=== PATIENT | male | born 1985 | race Caucasian/White ===

== ENCOUNTER 2016-11-24 06:13 | Emergency (ER) | payer OTHER ==
[~2016-11-24] VITALS: Ht 177.8 cm; Wt 83.9 kg
[~2016-11-24 06:13] MED LIST: ALLEGRA D 12 HO1 TER PO; ANAPROX DS550 MG PO; ANTIVERT/2525 M1 PO; BENTYL10 MG PO; CIPRO500 MG PO; CIPROFLOXACIN500 MG PO; CLARITIN-D 10 M1 T21 PO; CLARITIN10 MG PO; CLEOCIN HCL300 MG PO; CYCLOBENZAPRINE10 MG PO; FIORICET 325 MG1 TAB PO; FLEXERIL5 MG PO; FLONASE 0.05% 121 EA NAS; HYDROCODONE BIT1 T11 PO; IBU800 M1 PO; LEVOFLOXACIN500 MG PO; LOMOTIL 0.025 M1 TA1 PO; MIRALAX17 GM/PACK PO; MOTRIN800 MG PO; Motrin,Rufen800 MG PO; NAPROSYN500 MG PO; NKHM PO; PHENERGAN W/DM120 ML PO; PHENERGAN25 M1 PO; PHENERGAN25 M3 PO; PREDNICOT10 MG PO; PROAIR HFA0.09 MG/AC INH; PROTONIX40 MG PO; PYRIDIUM200 MG PO; ROBITUSSIN AC 110 ML PO; VALACYCLOVIR H500 MG PO; VIBRAMYCIN100 MG PO; ZITHROMAX Z PA250 MG PO; ZITHROMAX250 MG PO; ZOFRAN ODT4 MG SL; ZOFRAN4 MG PO; ZYRTEC10 M3 PO; ZYRTEC10 MG PO; Zofran4 MG PO
[2016-11-24] MEDS ORDERED: HYDROCODONE BIT1 T11 PO (06:37)
[2016-11-24] MEDS ORDERED: PREDNISONE10 MG PO (06:37)
[2016-11-24] MEDS ORDERED: Orphenadrine C100 MG PO (06:37)
== END 2016-11-24 07:47 | disposition home or self-care (01) ==
LOC: ED 06:13
DX: S39.012A Strain of muscle, fascia and tendon of lower back, initial encounter (principal); Z88.1 Allergy status to other antibiotic agents; X58.XXXA Exposure to other specified factors, initial encounter; Y93.89 Activity, other specified; Y92.89 Other specified places as the place of occurrence of the external cause; Y99.8 Other external cause status

== ENCOUNTER 2016-12-04 09:35 | Emergency (ER) | payer OTHER ==
[~2016-12-04] VITALS: Wt 95.3 kg
[~2016-12-04 09:35] MED LIST changes: +Orphenadrine C100 MG PO; +PREDNISONE10 MG PO
[2016-12-04] MEDS ORDERED: NAPROSYN500 MG PO (09:49)
[2016-12-04] MEDS ORDERED: 'PARAFON FORTE500 M1 PO (09:49)
== END 2016-12-04 09:54 | disposition home or self-care (01) ==
LOC: ED 09:35
DX: S39.012D Strain of muscle, fascia and tendon of lower back, subsequent encounter (principal); R03.0 Elevated blood-pressure reading, without diagnosis of hypertension; Z88.1 Allergy status to other antibiotic agents; X58.XXXD Exposure to other specified factors, subsequent encounter

== ENCOUNTER 2016-12-09 20:43 | Emergency (ER) | payer OTHER ==
[~2016-12-09] VITALS: Ht 177.8 cm; Wt 97.5 kg
[~2016-12-09 20:43] MED LIST changes: +'PARAFON FORTE500 M1 PO
[2016-12-09] MEDS ORDERED: MEDROL DOSEPAK4 MG PO (21:05)
== END 2016-12-09 21:25 | disposition home or self-care (01) ==
LOC: ED 20:43
DX: S39.012A Strain of muscle, fascia and tendon of lower back, initial encounter (principal); Z88.1 Allergy status to other antibiotic agents; X50.1XXA Overexertion from prolonged static or awkward postures, initial encounter; Y93.89 Activity, other specified; Y92.89 Other specified places as the place of occurrence of the external cause; Y99.8 Other external cause status

== ENCOUNTER 2017-01-01 19:21 | Emergency (ER) | payer OTHER ==
[~2017-01-01] VITALS: Ht 165.1 cm; Wt 83.9 kg
[~2017-01-01 19:21] MED LIST changes: +MEDROL DOSEPAK4 MG PO
[2017-01-01] MEDS ORDERED: ALLEGRA-D 24 H1 EACH PO (19:43)
[2017-01-01] MEDS ORDERED: FLONASE ALLERG9.9 ML NAS (19:43)
[2017-01-01] MEDS ORDERED: ZITHROMAX250 MG PO (19:43)
== END 2017-01-01 20:06 | disposition home or self-care (01) ==
LOC: ED 19:21
DX: J01.90 Acute sinusitis, unspecified (principal); Z88.1 Allergy status to other antibiotic agents

== ENCOUNTER 2017-01-24 17:41 | Emergency (ER) | payer OTHER ==
[~2017-01-24] VITALS: Ht 175.2 cm; Wt 86.2 kg
[~2017-01-24 17:41] MED LIST changes: +ALLEGRA-D 24 H1 EACH PO; +FLONASE ALLERG9.9 ML NAS
[2017-01-24] MEDS ORDERED: ZOFRAN ODT4 MG SL (18:37)
[2017-01-24] MEDS ORDERED: ZITHROMAX250 MG PO (18:37)
== END 2017-01-24 18:54 | disposition home or self-care (01) ==
LOC: ED 17:41
DX: J01.90 Acute sinusitis, unspecified (principal); Z79.899 Other long term (current) drug therapy; Z88.1 Allergy status to other antibiotic agents

== ENCOUNTER → 2017-02-02 | Outpatient (CLI) | payer OTHER | END | disposition home or self-care (01) | LOC: MRI 01-24 09:00 | DX: M50.221 Other cervical disc displacement at C4-C5 level (principal); M50.21 Other cervical disc displacement, high cervical region; M48.02 Spinal stenosis, cervical region; M12.88 Other specific arthropathies, not elsewhere classified, other specified site; M54.12 Radiculopathy, cervical region ==

== ENCOUNTER 2017-03-04 15:41 | Emergency (ER) | payer OTHER ==
[~2017-03-04] VITALS: Ht 175.2 cm; Wt 89.4 kg
[2017-03-04 16:12] LABS: BILIRUBIN NEGATIVE (NEGATIVE); BLOOD NEGATIVE (NEGATIVE); CLARITY SL CLOUDY (CLEAR); COLOR YELLOW (YELLOW); GLUCOSE NEGATIVE (NEGATIVE); KETONE NEGATIVE (NEGATIVE); LEUKO ESTERASE TRACE (NEGATIVE); NITRITE NEGATIVE (NEGATIVE); PH 7.5 (5.0-9.0)
[2017-03-04] MEDS ORDERED: ANAPROX DS550 MG PO (16:15)
[2017-03-04 16:18] LABS: BACTERIA TRACE; MUCOUS 1+
[2017-03-04 16:20] LABS: WBC 21-30 wbc/hpf (0-5)
== END 2017-03-04 16:36 | disposition home or self-care (01) ==
LOC: ED 15:41
PROVIDERS: Physician Assistant
DX: A64 Unspecified sexually transmitted disease (principal); Z79.899 Other long term (current) drug therapy; Z88.1 Allergy status to other antibiotic agents

== ENCOUNTER 2017-04-11 07:32 | Emergency (ER) | payer OTHER ==
[~2017-04-11] VITALS: Ht 401.3 cm; Wt 93.0 kg
[2017-04-11] MEDS ORDERED: Motrin,Rufen800 MG PO (10:23)
[2017-04-11] MEDS ORDERED: Meclizine25 MG PO (10:23)
== END 2017-04-11 08:59 | disposition home or self-care (01) ==
LOC: ED 07:32
DX: S06.0X9A Concussion with loss of consciousness of unspecified duration, initial encounter (principal); G40.909 Epilepsy, unspecified, not intractable, without status epilepticus; Z88.1 Allergy status to other antibiotic agents; V89.2XXA Person injured in unspecified motor-vehicle accident, traffic, initial encounter; Y93.89 Activity, other specified; Y92.413 State road as the place of occurrence of the external cause; Y99.8 Other external cause status

== ENCOUNTER 2017-05-23 14:41 | Emergency (ER) | payer OTHER ==
[~2017-05-23] VITALS: Ht 177.8 cm; Wt 94.3 kg
[~2017-05-23 14:41] MED LIST changes: +Meclizine25 MG PO
[2017-05-23] MEDS ORDERED: FLONASE ALLERG9.9 ML NAS (16:41)
[2017-05-23] MEDS ORDERED: ZYRTEC10 MG PO (16:41)
[2017-05-23] MEDS ORDERED: ZOFRAN ODT4 MG SL (16:58)
== END 2017-05-23 17:03 | disposition home or self-care (01) ==
LOC: ED 14:41
DX: B34.9 Viral infection, unspecified (principal); Z88.1 Allergy status to other antibiotic agents; Z79.899 Other long term (current) drug therapy

== ENCOUNTER 2017-06-20 09:03 | Emergency (ER) | payer OTHER ==
[~2017-06-20] VITALS: Wt 97.5 kg
[2017-06-20] MEDS ORDERED: SEPTDS PO (11:01)
[2017-06-20] MEDS ORDERED: TESSALON PERLE100 M1 PO (11:01)
[2017-06-20] MEDS ORDERED: FLONASE ALLERG9.9 ML NAS (11:01)
== END 2017-06-20 11:11 | disposition home or self-care (01) ==
LOC: ED 09:03
DX: J40 Bronchitis, not specified as acute or chronic (principal); J32.9 Chronic sinusitis, unspecified; R42 Dizziness and giddiness; Z88.1 Allergy status to other antibiotic agents

== ENCOUNTER 2017-06-22 12:30 | Emergency (ER) | payer OTHER ==
[~2017-06-22] VITALS: Ht 175.2 cm; Wt 97.5 kg
[~2017-06-22 12:30] MED LIST changes: +SEPTDS PO; +TESSALON PERLE100 M1 PO
[2017-06-22] MEDS ORDERED: ZOFRAN ODT4 MG SL (14:37)
== END 2017-06-22 14:39 | disposition home or self-care (01) ==
LOC: ED 12:30
DX: K52.9 Noninfective gastroenteritis and colitis, unspecified (principal); Z88.1 Allergy status to other antibiotic agents

== ENCOUNTER 2017-07-05 16:08 | Emergency (ER) | payer OTHER ==
[~2017-07-05] VITALS: Ht 175.2 cm; Wt 97.5 kg
[2017-07-05] MEDS ORDERED: PREDNISONE20 M1 PO (17:06)
[2017-07-05] MEDS ORDERED: ZITHROMAX250 MG PO (17:06)
== END 2017-07-05 17:16 | disposition home or self-care (01) ==
LOC: ED 16:08
DX: J02.0 Streptococcal pharyngitis (principal); Z88.1 Allergy status to other antibiotic agents

== ENCOUNTER 2017-07-08 21:12 | Emergency (ER) | payer OTHER ==
[~2017-07-08] VITALS: Ht 177.8 cm; Wt 97.5 kg
[~2017-07-08 21:12] MED LIST changes: +PREDNISONE20 M1 PO
[2017-07-08 21:38] LABS: BASO % 0.2 % (0.0-1.0); EOS # 0.1 10*3/uL (0.0-0.4); EOS % 0.4 % (1.0-4.0); HEMATOCRIT 43.5 % (42.0-52.0); HEMOGLOBIN 14.3 g/dl (14.0-18.0); LYMPH # 1.6 10*3/uL (1.3-4.4); LYMPH % 13.1 % (27.0-41.0); MEAN CELL VOLUME 87.9 fl (80.0-94.0); MEAN CORPUSCULAR HGB 28.9 pg (27.0-31.0); MEAN CORPUSCULAR HGB CONC 32.9 g/dl (33.0-37.0); MEAN PLATELET VOLUME 9.6 fl (9.6-12.3); MONO # 0.5 10*3/uL (0.1-1.0); MONO % 4.2 % (3.0-9.0); NEUT # 10.1 10*3/uL (2.3-7.9); NEUT % 81.6 % (47.0-73.0); PLATELET COUNT AUTOMATED 310 10*3/uL (130-400); RED BLOOD COUNT 4.95 10*6/uL (4.50-5.90); RED CELL DISTRI WIDTH 12.1 % (0-14.5); WHITE BLOOD COUNT 12.3 10*3/uL (4.8-10.8)
[2017-07-08 22:16] LABS: BUN 20 mg/dl (7-24); CHLORIDE 100 mmol/L (98-107); CREATININE 0.79 mg/dL (0.70-1.30); SODIUM 136 mmol/L (136-145)
== END 2017-07-08 22:38 | disposition home or self-care (01) ==
LOC: ED 21:12
PROVIDERS: Emergency Medicine Emergency Medical Services
DX: J03.00 Acute streptococcal tonsillitis, unspecified (principal); G40.909 Epilepsy, unspecified, not intractable, without status epilepticus; E78.00 Pure hypercholesterolemia, unspecified; E83.51 Hypocalcemia; Z88.1 Allergy status to other antibiotic agents

== ENCOUNTER 2017-07-25 17:43 | Emergency (ER) | payer OTHER ==
[~2017-07-25] VITALS: Ht 177.8 cm; Wt 93.0 kg
[2017-07-25] MEDS ORDERED: DELTASONE20 M1 PO (20:39)
[2017-07-25] MEDS ORDERED: DOXYCYCLINE100 M3 PO (20:39)
[2017-07-25] MEDS ORDERED: PROVENTIL HFA6.7 GM INH (20:39)
[2017-07-25] MEDS ORDERED: HYCODAN/HYDROMET5 ML PO (20:40)
== END 2017-07-25 20:52 | disposition home or self-care (01) ==
LOC: ED 17:43
DX: J20.9 Acute bronchitis, unspecified (principal); J02.9 Acute pharyngitis, unspecified; Z88.1 Allergy status to other antibiotic agents

== ENCOUNTER 2017-11-15 17:32 | Emergency (ER) | payer OTHER ==
[~2017-11-15] VITALS: Ht 177.8 cm; Wt 93.0 kg
[~2017-11-15 17:32] MED LIST changes: +DELTASONE20 M1 PO; +DOXYCYCLINE100 M3 PO; +HYCODAN/HYDROMET5 ML PO; +PROVENTIL HFA6.7 GM INH
[2017-11-15] MEDS ORDERED: PROTONIX40 MG PO (18:17)
[2017-11-15] MEDS ORDERED: ZITHROMAX250 MG PO (18:17)
== END 2017-11-15 18:23 | disposition home or self-care (01) ==
LOC: ED 17:32
DX: K21.9 Gastro-esophageal reflux disease without esophagitis (principal); J32.9 Chronic sinusitis, unspecified; G40.909 Epilepsy, unspecified, not intractable, without status epilepticus; Z88.1 Allergy status to other antibiotic agents; Z79.899 Other long term (current) drug therapy

== ENCOUNTER 2017-11-16 16:13 | Emergency (ER) | payer OTHER ==
[~2017-11-16] VITALS: Ht 175.2 cm; Wt 93.0 kg
== END 2017-11-16 16:42 | disposition home or self-care (01) ==
LOC: ED 16:13
DX: J02.9 Acute pharyngitis, unspecified (principal); H66.93 Otitis media, unspecified, bilateral; K21.9 Gastro-esophageal reflux disease without esophagitis; Z88.1 Allergy status to other antibiotic agents; Z79.899 Other long term (current) drug therapy

== ENCOUNTER 2018-01-30 20:30 | Emergency (ER) | payer OTHER ==
[~2018-01-30] VITALS: Ht 177.8 cm; Wt 95.3 kg
[2018-01-30] MEDS ORDERED: DOXYCYCLINE100 M3 PO (21:19)
[2018-01-30] MEDS ORDERED: ZITHROMAX250 MG PO (21:56)
[2018-01-31] MEDS ORDERED: IBUPROFEN600 MG PO (19:14)
[2018-01-31] MEDS ORDERED: CLINDAMYCIN HC300 MG PO (19:14)
[2018-01-31] MEDS ORDERED: ZOFRAN ODT4 MG SL (19:21)
== END 2018-01-30 22:35 | disposition home or self-care (01) ==
LOC: ED 20:30
DX: J02.0 Streptococcal pharyngitis (principal); J32.9 Chronic sinusitis, unspecified; Z88.1 Allergy status to other antibiotic agents

== ENCOUNTER 2018-01-31 17:00 | Emergency (ER) | payer OTHER ==
[~2018-01-31] VITALS: Ht 177.8 cm; Wt 95.3 kg
[2018-01-31 17:58] LABS: BASO % 0.2 % (0.0-1.0); EOS % 0.4 % (1.0-4.0); HEMATOCRIT 43.5 % (42.0-52.0); HEMOGLOBIN 14.5 g/dl (14.0-18.0); LYMPH # 2.1 10*3/uL (1.3-4.4); LYMPH % 25.6 % (27.0-41.0); MEAN CELL VOLUME 87.7 fl (80.0-94.0); MEAN CORPUSCULAR HGB 29.2 pg (27.0-31.0); MEAN CORPUSCULAR HGB CONC 33.3 g/dl (33.0-37.0); MEAN PLATELET VOLUME 10.1 fl (9.6-12.3); MONO # 0.5 10*3/uL (0.1-1.0); MONO % 6.2 % (3.0-9.0); NEUT # 5.6 10*3/uL (2.3-7.9); NEUT % 67.4 % (47.0-73.0); PLATELET COUNT AUTOMATED 291 10*3/uL (130-400); RED BLOOD COUNT 4.96 10*6/uL (4.50-5.90); RED CELL DISTRI WIDTH 12.9 % (0-14.5); WHITE BLOOD COUNT 8.2 10*3/uL (4.8-10.8)
[2018-01-31 18:01] LABS: ACT PARTIAL THROMBO TIME 27.7 SECONDS (20.8-31.5)
[2018-01-31 18:08] LABS: ALKALINE PHOSPHATASE 99 U/L (45-117); BUN 12 mg/dl (7-24); CHLORIDE 106 mmol/L (98-107); CREATININE 0.75 mg/dL (0.70-1.30); LIPASE 112 U/L (73-393); POTASSIUM 3.6 mmol/L (3.5-5.1); SGOT/AST 20 IU/L (3-35); SGPT/ALT 37 U/L (12-78); SODIUM 140 mmol/L (136-145); TOTAL PROTEIN 7.8 gm/dL (6.4-8.2)
[2018-01-31 18:33] LABS: BILIRUBIN NEGATIVE (NEGATIVE); BLOOD NEGATIVE (NEGATIVE); CLARITY CLEAR (CLEAR); COLOR YELLOW (YELLOW); GLUCOSE NEGATIVE (NEGATIVE); KETONE NEGATIVE (NEGATIVE); LEUKO ESTERASE NEGATIVE (NEGATIVE); NITRITE NEGATIVE (NEGATIVE); SPECIFIC GRAVITY 1.015 (1.005-1.030); UROBILINOGEN 0.2 E.U./dl (0.2-1.0)
[2018-01-31 18:40] LABS: BACTERIA 2+; EPITHELIAL CELLS 0-2; RBC 0-2 rbc/hpf (0-2); WBC 0-2 wbc/hpf (0-5)
[2018-01-31] MEDS ORDERED: CLINDAMYCIN HC300 MG PO (19:14)
[2018-01-31] MEDS ORDERED: IBUPROFEN600 MG PO (19:14)
[2018-01-31] MEDS ORDERED: ZOFRAN ODT4 MG SL (19:21)
== END 2018-01-31 19:19 | disposition home or self-care (01) ==
LOC: ED 17:00
PROVIDERS: Physician Assistant
DX: J02.0 Streptococcal pharyngitis (principal); T36.3X5A Adverse effect of macrolides, initial encounter; Y92.89 Other specified places as the place of occurrence of the external cause; Z88.1 Allergy status to other antibiotic agents

== ENCOUNTER 2018-02-07 17:47 | Emergency (ER) | payer OTHER ==
[~2018-02-07] VITALS: Ht 177.8 cm; Wt 97.5 kg
[~2018-02-07 17:47] MED LIST changes: +CLINDAMYCIN HC300 MG PO; +IBUPROFEN600 MG PO
[2018-02-07 18:14] LABS: BASO % 0.2 % (0.0-1.0); EOS % 0.2 % (1.0-4.0); HEMATOCRIT 44.9 % (42.0-52.0); HEMOGLOBIN 14.9 g/dl (14.0-18.0); LYMPH # 2.2 10*3/uL (1.3-4.4); MEAN CELL VOLUME 87.4 fl (80.0-94.0); MEAN CORPUSCULAR HGB CONC 33.2 g/dl (33.0-37.0); MEAN PLATELET VOLUME 9.8 fl (9.6-12.3); MONO # 0.4 10*3/uL (0.1-1.0); MONO % 5.4 % (3.0-9.0); NEUT # 5.4 10*3/uL (2.3-7.9); PLATELET COUNT AUTOMATED 282 10*3/uL (130-400); RED BLOOD COUNT 5.14 10*6/uL (4.50-5.90); RED CELL DISTRI WIDTH 12.7 % (0-14.5); WHITE BLOOD COUNT 8.1 10*3/uL (4.8-10.8)
[2018-02-07 18:29] LABS: ALKALINE PHOSPHATASE 102 U/L (45-117); BUN 16 mg/dl (7-24); CHLORIDE 104 mmol/L (98-107); CREATININE 0.94 mg/dL (0.70-1.30); LIPASE 93 U/L (73-393); POTASSIUM 3.6 mmol/L (3.5-5.1); SGOT/AST 20 IU/L (3-35); SGPT/ALT 37 U/L (12-78); SODIUM 139 mmol/L (136-145); TOTAL PROTEIN 7.9 gm/dL (6.4-8.2)
[2018-02-07] MEDS ORDERED: ZOFRAN ODT4 MG SL (19:33)
== END 2018-02-07 19:36 | disposition home or self-care (01) ==
LOC: ED 17:47
PROVIDERS: Physician Assistant
DX: A08.4 Viral intestinal infection, unspecified (principal); Z88.1 Allergy status to other antibiotic agents

== ENCOUNTER 2018-09-18 20:55 | Emergency (ER) | payer BC ==
[~2018-09-18] VITALS: Wt 100.2 kg
[2018-09-18] MEDS ORDERED: INDOMETHACIN50 MG PO (22:27)
== END 2018-09-18 23:48 | disposition home or self-care (01) ==
LOC: ED 20:55
DX: M70.22 Olecranon bursitis, left elbow (principal); K21.9 Gastro-esophageal reflux disease without esophagitis; G40.909 Epilepsy, unspecified, not intractable, without status epilepticus; Z88.1 Allergy status to other antibiotic agents; Y93.89 Activity, other specified

== ENCOUNTER 2020-04-12 17:44 | Emergency (ER) | payer OTHER ==
[~2020-04-12 17:44] MED LIST changes: +INDOMETHACIN50 MG PO
[2020-04-12] MEDS ORDERED: MEDROL DOSEPAK4 MG PO ×2 (18:11→18:15)
== END 2020-04-12 18:14 | disposition home or self-care (01) ==
LOC: ED 17:44
DX: S39.012A Strain of muscle, fascia and tendon of lower back, initial encounter (principal); X50.1XXA Overexertion from prolonged static or awkward postures, initial encounter; Y93.89 Activity, other specified; Y92.89 Other specified places as the place of occurrence of the external cause; Y99.8 Other external cause status

== ENCOUNTER 2020-05-19 18:01 | Emergency (ER) | payer OTHER, BC ==
[~2020-05-19] VITALS: Ht 177.8 cm; Wt 97.5 kg
== END 2020-05-19 22:15 | disposition home or self-care (01) ==
LOC: ED 18:01
DX: M54.9 Dorsalgia, unspecified (principal); R20.0 Anesthesia of skin; R20.2 Paresthesia of skin; F98.8 Other specified behavioral and emotional disorders with onset usually occurring in childhood and adolescence; Z88.1 Allergy status to other antibiotic agents; Z79.899 Other long term (current) drug therapy; Z79.2 Long term (current) use of antibiotics; Z87.442 Personal history of urinary calculi; X50.0XXA Overexertion from strenuous movement or load, initial encounter; Y93.89 Activity, other specified; Y92.512 Supermarket, store or market as the place of occurrence of the external cause; Y99.8 Other external cause status

== ENCOUNTER 2020-06-22 23:58 | Emergency (ER) | payer BC ==
[~2020-06-22] VITALS: Ht 170.1 cm; Wt 83.9 kg
[2020-06-23] MEDS ORDERED: ROBAXIN-750750 MG PO (01:16)
[2020-06-23] MEDS ORDERED: PREDNISONE20 M1 PO (01:16)
== END 2020-06-23 01:20 | disposition home or self-care (01) ==
LOC: ED 23:58
DX: S33.5XXA Sprain of ligaments of lumbar spine, initial encounter (principal); F98.8 Other specified behavioral and emotional disorders with onset usually occurring in childhood and adolescence; Z87.442 Personal history of urinary calculi; Z88.1 Allergy status to other antibiotic agents; Z79.2 Long term (current) use of antibiotics; Z79.899 Other long term (current) drug therapy; X50.0XXA Overexertion from strenuous movement or load, initial encounter; Y93.89 Activity, other specified; Y92.69 Other specified industrial and construction area as the place of occurrence of the external cause; Y99.8 Other external cause status

== ENCOUNTER 2020-07-22 17:19 | Emergency (ER) | payer BC ==
[~2020-07-22 17:19] MED LIST changes: +ROBAXIN-750750 MG PO
[2020-07-22] MEDS ORDERED: Motrin,Rufen800 MG PO (18:15)
[2020-07-22] MEDS ORDERED: MEDROL DOSEPAK4 MG PO (18:15)
[2020-07-22] MEDS ORDERED: CYCLOBENZAPRINE5 M3 PO (18:15)
== END 2020-07-22 18:36 | disposition home or self-care (01) ==
LOC: ED 17:19
DX: S39.012A Strain of muscle, fascia and tendon of lower back, initial encounter (principal); Z88.8 Allergy status to other drugs, medicaments and biological substances; Z79.899 Other long term (current) drug therapy; X58.XXXA Exposure to other specified factors, initial encounter; Y93.89 Activity, other specified; Y92.89 Other specified places as the place of occurrence of the external cause; Y99.8 Other external cause status

== ENCOUNTER → 2020-08-11 | Outpatient (CLI) | payer OTHER ==
[~2020-08-11] MED LIST changes: +CYCLOBENZAPRINE5 M3 PO
== END | disposition home or self-care (01) ==
LOC: RAD 22:21
PROVIDERS: ATTEND Orthopaedic Surgery Orthopaedic Surgery of the Spine
DX: S39.012D Strain of muscle, fascia and tendon of lower back, subsequent encounter (principal); X58.XXXD Exposure to other specified factors, subsequent encounter

== ENCOUNTER → 2020-08-12 | Outpatient (CLI) | payer OTHER | END | disposition home or self-care (01) | LOC: MRI 14:35 | PROVIDERS: ATTEND Nurse Practitioner Family | DX: S39.012D Strain of muscle, fascia and tendon of lower back, subsequent encounter (principal); X58.XXXD Exposure to other specified factors, subsequent encounter ==

== ENCOUNTER 2020-11-13 07:06 | Emergency (ER) | payer BC ==
[2020-11-13] MEDS ORDERED: NAPROXEN250 MG PO (08:32)
[2020-11-13] MEDS ORDERED: TYLENOL325 M1 PO (08:32)
== END 2020-11-13 08:42 | disposition home or self-care (01) ==
LOC: ED 07:06
DX: S63.501A Unspecified sprain of right wrist, initial encounter (principal); K21.9 Gastro-esophageal reflux disease without esophagitis; G40.909 Epilepsy, unspecified, not intractable, without status epilepticus; Z88.1 Allergy status to other antibiotic agents; Z79.899 Other long term (current) drug therapy; Z79.2 Long term (current) use of antibiotics; W18.2XXA Fall in (into) shower or empty bathtub, initial encounter; Y93.89 Activity, other specified; Y92.091 Bathroom in other non-institutional residence as the place of occurrence of the external cause; Y99.8 Other external cause status

== ENCOUNTER 2020-12-19 20:04 | Emergency (ER) | payer BC ==
[~2020-12-19 20:04] MED LIST changes: +NAPROXEN250 MG PO; +TYLENOL325 M1 PO
== END 2020-12-19 21:53 | disposition left against medical advice (07) ==
LOC: ED 20:04
DX: Z20.822 Contact with and (suspected) exposure to COVID-19 (principal); Z53.21 Procedure and treatment not carried out due to patient leaving prior to being seen by health care provider

== ENCOUNTER 2020-12-21 10:49 | Emergency (ER) | payer BC ==
[~2020-12-21] VITALS: Wt 92.5 kg
[2020-12-21] MEDS ORDERED: ZITHROMAX250 MG PO (13:43)
[2020-12-21] MEDS ORDERED: PREDNISONE20 M1 PO (13:43)
== END 2020-12-21 15:24 | disposition home or self-care (01) ==
LOC: ED 10:49
DX: B34.9 Viral infection, unspecified (principal); Z20.822 Contact with and (suspected) exposure to COVID-19; Z88.1 Allergy status to other antibiotic agents

== ENCOUNTER → 2021-01-20 | Outpatient (CLI) | payer BC | END | disposition home or self-care (01) | LOC: COVID19 17:19 | PROVIDERS: ATTEND Internal Medicine | DX: Z11.52 Encounter for screening for COVID-19 (principal) ==

== ENCOUNTER → 2021-02-05 | Outpatient (CLI) | payer OTHER | END | disposition home or self-care (01) | LOC: NM 09:42 | PROVIDERS: ATTEND Physical Medicine & Rehabilitation | DX: M54.59 Other low back pain (principal) ==

== ENCOUNTER 2021-04-23 20:48 | Emergency (ER) | payer BC ==
[~2021-04-23] VITALS: Ht 175.2 cm; Wt 90.7 kg
[2021-04-24 01:30] LABS: BASO % 0.2 % (0.0-1.0); EOS # 0.1 10*3/uL (0.0-0.4); EOS % 0.9 % (1.0-4.0); HEMATOCRIT 42.7 % (42.0-52.0); LYMPH # 1.1 10*3/uL (1.3-4.4); LYMPH % 18.4 % (27.0-41.0); MEAN CELL VOLUME 87.1 fl (80.0-94.0); MEAN CORPUSCULAR HGB CONC 33.3 g/dl (33.0-37.0); MEAN PLATELET VOLUME 9.6 fl (9.6-12.3); MONO # 0.6 10*3/uL (0.1-1.0); MONO % 10.3 % (3.0-9.0); PLATELET COUNT AUTOMATED 244 10*3/uL (130-400); RED CELL DISTRI WIDTH 12.5 % (0-14.5); WHITE BLOOD COUNT 5.7 10*3/uL (4.8-10.8)
[2021-04-24 01:44] LABS: ALBUMIN 3.2 gm/dl (3.1-4.5); ALKALINE PHOSPHATASE 72 U/L (45-117); BUN 13 mg/dl (7-24); CHLORIDE 107 mmol/L (98-107); CREATININE 0.75 mg/dL (0.70-1.30); POTASSIUM 3.8 mmol/L (3.5-5.1); SGOT/AST 29 IU/L (3-35); SGPT/ALT 32 U/L (12-78); SODIUM 138 mmol/L (136-145); TOTAL PROTEIN 6.4 gm/dL (6.4-8.2)
[2021-04-24] MEDS ORDERED: LEVOFLOXACIN750 M2 PO ×3 (05:17→17:06)
== END 2021-04-24 05:20 | disposition home or self-care (01) ==
LOC: ED 20:48
PROVIDERS: Emergency Medicine
DX: J18.9 Pneumonia, unspecified organism (principal); Z20.822 Contact with and (suspected) exposure to COVID-19; K21.9 Gastro-esophageal reflux disease without esophagitis; G40.909 Epilepsy, unspecified, not intractable, without status epilepticus; Z88.1 Allergy status to other antibiotic agents

== ENCOUNTER → 2021-08-17 | Outpatient (CLI) | payer BC ==
[~2021-08-17] MED LIST changes: +LEVOFLOXACIN750 M2 PO
== END | disposition home or self-care (01) ==
LOC: RAD 11:14
PROVIDERS: ATTEND Family Medicine
DX: R91.1 Solitary pulmonary nodule (principal); R07.9 Chest pain, unspecified

== ENCOUNTER 2021-09-19 15:38 | Emergency (ER) | payer BC ==
[~2021-09-19] VITALS: Wt 82.6 kg
[2021-09-19] MEDS ORDERED: CEPHALEXIN500 M1 PO (17:39)
== END 2021-09-19 18:03 | disposition home or self-care (01) ==
LOC: ED 15:38
DX: L04.9 Acute lymphadenitis, unspecified (principal); Z88.1 Allergy status to other antibiotic agents

== ENCOUNTER → 2021-10-15 | Outpatient (CLI) | payer BC ==
[~2021-10-15] MED LIST changes: +ALLOPURINOL100 MG PO; +CEPHALEXIN500 M1 PO; +OMEPRAZOLE20 M2 PO
== END | disposition home or self-care (01) ==
LOC: CARD 03:21
PROVIDERS: ATTEND Internal Medicine
DX: R07.9 Chest pain, unspecified (principal); R55 Syncope and collapse

== ENCOUNTER 2021-10-23 12:03 | Emergency (ER) | payer BC ==
[~2021-10-23] VITALS: Ht 175.2 cm; Wt 80.7 kg
[2021-10-23 14:06] LABS: BUN 17 mg/dl (7-24); CHLORIDE 111 mmol/L (98-107); CREATININE 1.29 mg/dL (0.70-1.30); POTASSIUM 4.3 mmol/L (3.5-5.1); SODIUM 143 mmol/L (136-145); URIC ACID 7.2 mg/dL (3.5-7.2)
[2021-10-23] MEDS ORDERED: ALLOPURINOL100 MG PO (15:24)
[2021-10-23] MEDS ORDERED: IBU800 MG PO (15:24)
== END 2021-10-23 15:35 | disposition home or self-care (01) ==
LOC: ED 12:03
PROVIDERS: Nurse Practitioner Family
DX: M77.8 Other enthesopathies, not elsewhere classified (principal); Z88.1 Allergy status to other antibiotic agents; Z79.899 Other long term (current) drug therapy; Z76.0 Encounter for issue of repeat prescription

== ENCOUNTER → 2021-11-19 | Outpatient (CLI) | payer BC ==
[~2021-11-19] MED LIST changes: +IBU800 MG PO
== END ==
LOC: CARD 00:03
PROVIDERS: ATTEND Internal Medicine
DX: I34.0 Nonrheumatic mitral (valve) insufficiency (principal); R55 Syncope and collapse

== ENCOUNTER 2022-04-06 05:01 | Emergency (ER) | payer BC ==
[~2022-04-06] VITALS: Ht 175.2 cm; Wt 79.9 kg
[2022-04-06] MEDS ORDERED: SEPTDS PO (05:57)
== END 2022-04-06 06:19 | disposition home or self-care (01) ==
LOC: ED 05:01
DX: L02.31 Cutaneous abscess of buttock (principal); Z88.1 Allergy status to other antibiotic agents

== ENCOUNTER → 2022-04-07 | Outpatient (CLI) | payer BC | END | disposition home or self-care (01) | LOC: WOUNDCARE 15:12 | PROVIDERS: ATTEND Nurse Practitioner Family | DX: L02.31 Cutaneous abscess of buttock (principal) ==

== ENCOUNTER 2022-06-22 02:34 | Emergency (ER) | payer BC ==
[~2022-06-22] VITALS: Ht 162.5 cm; Wt 72.6 kg
[2022-06-22] MEDS ORDERED: PERCOCET 5-3251 EACH PO (02:53)
== END 2022-06-22 03:01 | disposition home or self-care (01) ==
LOC: ED 02:34
DX: L03.312 Cellulitis of back [any part except buttock and flank] (principal); Z88.1 Allergy status to other antibiotic agents; Z98.890 Other specified postprocedural states; Z87.442 Personal history of urinary calculi

== ENCOUNTER 2022-06-26 14:35 | Emergency (ER) | payer BC ==
[~2022-06-26 14:35] MED LIST changes: +PERCOCET 5-3251 EACH PO
[2022-06-26 16:16] LABS: BASO % 0.2 % (0.0-1.0); EOS % 0.4 % (1.0-4.0); HEMATOCRIT 43.2 % (42.0-52.0); LYMPH # 0.5 10*3/uL (1.3-4.4); MEAN CELL VOLUME 90.2 fl (80.0-94.0); MEAN CORPUSCULAR HGB 29.4 pg (27.0-31.0); MEAN CORPUSCULAR HGB CONC 32.6 g/dl (33.0-37.0); MEAN PLATELET VOLUME 9.3 fl (9.6-12.3); MONO # 0.7 10*3/uL (0.1-1.0); NEUT # 9.5 10*3/uL (2.3-7.9); NEUT % 88.1 % (47.0-73.0); PLATELET COUNT AUTOMATED 366 10*3/uL (130-400); RED BLOOD COUNT 4.79 10*6/uL (4.50-5.90); RED CELL DISTRI WIDTH 12.5 % (0-14.5); WHITE BLOOD COUNT 10.8 10*3/uL (4.8-10.8)
[2022-06-26 16:32] LABS: ALKALINE PHOSPHATASE 70 U/L (46-116); BUN 14 mg/dl (9-23); CHLORIDE 108 mmol/L (98-107); LIPASE 27 U/L (12-53); POTASSIUM 4.1 mmol/L (3.4-5.1); SGPT/ALT 18 U/L (10-49); TOTAL PROTEIN 6.7 gm/dL (6.0-8.0)
[2022-06-26] MEDS ORDERED: ONDANSETRON4 MG SL (19:23)
== END 2022-06-26 20:47 | disposition home or self-care (01) ==
LOC: ED 14:35
PROVIDERS: Physician Assistant
DX: K52.9 Noninfective gastroenteritis and colitis, unspecified (principal); Z88.1 Allergy status to other antibiotic agents; Z87.442 Personal history of urinary calculi

== ENCOUNTER 2022-07-06 04:31 | Emergency (ER) | payer BC ==
[~2022-07-06] VITALS: Ht 172.7 cm; Wt 78.0 kg
[~2022-07-06 04:31] MED LIST changes: +ONDANSETRON4 MG SL
== END 2022-07-06 07:02 | disposition home or self-care (01) ==
LOC: ED 04:31
DX: S56.912A Strain of unspecified muscles, fascia and tendons at forearm level, left arm, initial encounter (principal); S50.12XA Contusion of left forearm, initial encounter; Z87.442 Personal history of urinary calculi; Z88.1 Allergy status to other antibiotic agents; Z98.890 Other specified postprocedural states; W10.9XXA Fall (on) (from) unspecified stairs and steps, initial encounter; Y93.89 Activity, other specified; Y92.89 Other specified places as the place of occurrence of the external cause; Y99.8 Other external cause status

== ENCOUNTER 2022-09-06 12:38 | Emergency (ER) | payer BC ==
[~2022-09-06] VITALS: Ht 175.2 cm; Wt 79.4 kg
[2022-09-06] MEDS ORDERED: ATHLETIC FOOT C30 GM T (14:21)
[2022-09-06] MEDS ORDERED: NAPROSYN500 MG PO (14:21)
== END 2022-09-06 14:29 | disposition home or self-care (01) ==
LOC: ED 12:38
DX: M79.672 Pain in left foot (principal); M79.671 Pain in right foot; B35.3 Tinea pedis; K21.9 Gastro-esophageal reflux disease without esophagitis; Z88.1 Allergy status to other antibiotic agents; Z98.890 Other specified postprocedural states; Z87.442 Personal history of urinary calculi

== ENCOUNTER 2022-09-21 23:58 | Emergency (ER) | payer BC ==
[~2022-09-21] VITALS: Ht 172.7 cm; Wt 79.4 kg
[~2022-09-21 23:58] MED LIST changes: +ATHLETIC FOOT C30 GM T
[2022-09-22] MEDS ORDERED: CLINDAMYCIN HC300 MG PO (00:55)
== END 2022-09-22 01:19 | disposition home or self-care (01) ==
LOC: ED 23:58
DX: S02.5XXA Fracture of tooth (traumatic), initial encounter for closed fracture (principal); K08.89 Other specified disorders of teeth and supporting structures; K21.9 Gastro-esophageal reflux disease without esophagitis; G40.909 Epilepsy, unspecified, not intractable, without status epilepticus; Z88.1 Allergy status to other antibiotic agents; Z79.899 Other long term (current) drug therapy; Z79.2 Long term (current) use of antibiotics; X58.XXXA Exposure to other specified factors, initial encounter; Y93.89 Activity, other specified; Y92.89 Other specified places as the place of occurrence of the external cause; Y99.8 Other external cause status

== ENCOUNTER 2022-10-05 19:13 | Emergency (ER) | payer BC ==
[~2022-10-05] VITALS: Ht 175.2 cm; Wt 79.4 kg
[2022-10-05] MEDS ORDERED: Motrin,Rufen800 MG PO (21:13)
== END 2022-10-05 21:15 | disposition home or self-care (01) ==
LOC: ED 19:13
DX: S06.0X0A Concussion without loss of consciousness, initial encounter (principal); Z88.1 Allergy status to other antibiotic agents; Z87.442 Personal history of urinary calculi; W10.8XXA Fall (on) (from) other stairs and steps, initial encounter; Y93.89 Activity, other specified; Y92.89 Other specified places as the place of occurrence of the external cause; Y99.0 Civilian activity done for income or pay

== ENCOUNTER 2022-10-12 22:00 | Emergency (ER) | payer BC ==
[~2022-10-12] VITALS: Ht 175.2 cm; Wt 93.0 kg
[2022-10-12] MEDS ORDERED: VIBRAMYCIN100 MG PO (22:18)
[2022-10-12] MEDS ORDERED: PREDNISONE50 MG PO (22:18)
== END 2022-10-12 22:25 | disposition home or self-care (01) ==
LOC: ED 22:00
DX: J01.90 Acute sinusitis, unspecified (principal); Z88.1 Allergy status to other antibiotic agents; Z98.890 Other specified postprocedural states; Z87.442 Personal history of urinary calculi

== ENCOUNTER 2022-11-01 19:08 | Emergency (ER) | payer BC ==
[~2022-11-01] VITALS: Ht 172.7 cm; Wt 81.6 kg
[~2022-11-01 19:08] MED LIST changes: +PREDNISONE50 MG PO
[2022-11-01] MEDS ORDERED: VIBRAMYCIN100 MG PO (21:11)
== END 2022-11-01 21:55 | disposition home or self-care (01) ==
LOC: ED 19:08
DX: L02.211 Cutaneous abscess of abdominal wall (principal); L08.9 Local infection of the skin and subcutaneous tissue, unspecified; Z87.442 Personal history of urinary calculi; Z88.1 Allergy status to other antibiotic agents; Z98.890 Other specified postprocedural states

== ENCOUNTER 2022-11-19 19:15 | Emergency (ER) | payer BC ==
[~2022-11-19] VITALS: Wt 92.5 kg
== END 2022-11-19 20:59 | disposition home or self-care (01) ==
LOC: ED 19:15
DX: H65.03 Acute serous otitis media, bilateral (principal); Z88.1 Allergy status to other antibiotic agents; Z79.899 Other long term (current) drug therapy

== ENCOUNTER 2022-12-24 23:17 | Emergency (ER) | payer BC ==
[~2022-12-24] VITALS: Ht 172.7 cm; Wt 93.0 kg
[2022-12-24] MEDS ORDERED: SEPTDS PO (23:34)
== END 2022-12-24 23:48 | disposition home or self-care (01) ==
LOC: ED 23:17
DX: L02.31 Cutaneous abscess of buttock (principal); Z88.1 Allergy status to other antibiotic agents; Z79.899 Other long term (current) drug therapy

== ENCOUNTER 2023-02-13 04:58 | Emergency (ER) | payer BC ==
[~2023-02-13] VITALS: Ht 172.7 cm; Wt 99.8 kg
[2023-02-13] MEDS ORDERED: MELOXICAM15 MG PO (06:23)
== END 2023-02-13 06:55 | disposition home or self-care (01) ==
LOC: ED 04:58
DX: S39.012A Strain of muscle, fascia and tendon of lower back, initial encounter (principal); Z88.2 Allergy status to sulfonamides; Z88.0 Allergy status to penicillin; Z88.1 Allergy status to other antibiotic agents; Z98.890 Other specified postprocedural states; Z87.442 Personal history of urinary calculi; X58.XXXA Exposure to other specified factors, initial encounter; Y93.89 Activity, other specified; Y92.009 Unspecified place in unspecified non-institutional (private) residence as the place of occurrence of the external cause; Y99.8 Other external cause status

== ENCOUNTER 2023-03-26 23:47 | Emergency (ER) | payer BC ==
[~2023-03-26] VITALS: Ht 172.7 cm; Wt 108.9 kg
[~2023-03-26 23:47] MED LIST changes: +24 HOUR ALLER15.8 ML INH; +EPIPEN 2-P0.3 MG/0.3 IJ; +MELOXICAM15 MG PO; +PANTOPRAZOLE SO40 MG PO
[2023-03-27] MEDS ORDERED: PAXLOVID 300-11 EAC3 PO (02:53)
== END 2023-03-27 03:54 | disposition home or self-care (01) ==
LOC: ED 23:47
DX: U07.1 COVID-19 (principal); R42 Dizziness and giddiness; F17.210 Nicotine dependence, cigarettes, uncomplicated; Z88.2 Allergy status to sulfonamides; Z88.1 Allergy status to other antibiotic agents; Z88.0 Allergy status to penicillin; Z79.2 Long term (current) use of antibiotics; Z79.899 Other long term (current) drug therapy

== ENCOUNTER 2023-04-14 01:02 | Emergency (ER) | payer BC ==
[~2023-04-14] VITALS: Ht 175.2 cm; Wt 106.1 kg
[~2023-04-14 01:02] MED LIST changes: +PAXLOVID 300-11 EAC3 PO
[2023-04-14 01:26] LABS: BASO % 0.3 % (0.0-1.0); EOS # 0.1 10*3/uL (0.0-0.4); EOS % 0.6 % (1.0-4.0); HEMATOCRIT 42.3 % (42.0-52.0); LYMPH # 2.2 10*3/uL (1.3-4.4); LYMPH % 24.7 % (27.0-41.0); MEAN CELL VOLUME 89.2 fl (80.0-94.0); MEAN CORPUSCULAR HGB 28.5 pg (27.0-31.0); MEAN CORPUSCULAR HGB CONC 31.9 g/dl (33.0-37.0); MEAN PLATELET VOLUME 9.8 fl (9.6-12.3); MONO # 0.5 10*3/uL (0.1-1.0); MONO % 5.9 % (3.0-9.0); NEUT # 6.1 10*3/uL (2.3-7.9); NEUT % 68.3 % (47.0-73.0); PLATELET COUNT AUTOMATED 340 10*3/uL (130-400); RED BLOOD COUNT 4.74 10*6/uL (4.50-5.90); RED CELL DISTRI WIDTH 12.1 % (0-14.5)
[2023-04-14 01:51] LABS: ALKALINE PHOSPHATASE 86 U/L (46-116); BUN 17 mg/dl (9-23); CHLORIDE 107 mmol/L (98-107); LIPASE 38 U/L (12-53); POTASSIUM 3.8 mmol/L (3.4-5.1); SGPT/ALT 36 U/L (5-49); TOTAL PROTEIN 7.4 gm/dL (6.0-8.0)
[2023-04-14] MEDS ORDERED: VIBRAMYCIN100 MG PO (04:17)
[2023-04-14] MEDS ORDERED: GUAIFENESIN200 MG PO (04:17)
== END 2023-04-14 04:22 | disposition home or self-care (01) ==
LOC: ED 01:02
PROVIDERS: Internal Medicine
DX: J18.9 Pneumonia, unspecified organism (principal); Z87.442 Personal history of urinary calculi; Z88.0 Allergy status to penicillin; Z88.1 Allergy status to other antibiotic agents; Z98.890 Other specified postprocedural states; F17.210 Nicotine dependence, cigarettes, uncomplicated

== ENCOUNTER 2023-05-18 02:20 | Emergency (ER) | payer BC ==
[~2023-05-18] VITALS: Wt 95.3 kg
[~2023-05-18 02:20] MED LIST changes: +GUAIFENESIN200 MG PO
[2023-05-18 02:45] LABS: BASO % 0.5 % (0.0-1.0); EOS # 0.1 10*3/uL (0.0-0.4); EOS % 1.2 % (1.0-4.0); HEMATOCRIT 42.6 % (42.0-52.0); LYMPH # 2.3 10*3/uL (1.3-4.4); LYMPH % 34.7 % (27.0-41.0); MEAN CORPUSCULAR HGB 28.7 pg (27.0-31.0); MEAN CORPUSCULAR HGB CONC 32.6 g/dl (33.0-37.0); MEAN PLATELET VOLUME 9.6 fl (9.6-12.3); MONO # 0.5 10*3/uL (0.1-1.0); MONO % 7.5 % (3.0-9.0); NEUT # 3.7 10*3/uL (2.3-7.9); NEUT % 55.9 % (47.0-73.0); PLATELET COUNT AUTOMATED 279 10*3/uL (130-400); RED BLOOD COUNT 4.84 10*6/uL (4.50-5.90); RED CELL DISTRI WIDTH 12.4 % (0-14.5); WHITE BLOOD COUNT 6.6 10*3/uL (4.8-10.8)
[2023-05-18 03:02] LABS: ALKALINE PHOSPHATASE 88 U/L (46-116); BUN 15 mg/dl (9-23); CHLORIDE 105 mmol/L (98-107); POTASSIUM 3.7 mmol/L (3.4-5.1); SGPT/ALT 40 U/L (5-49); TOTAL PROTEIN 7.3 gm/dL (6.0-8.0)
== END 2023-05-18 05:34 | disposition home or self-care (01) ==
LOC: ED 02:20
PROVIDERS: Internal Medicine
DX: R07.89 Other chest pain (principal); R06.02 Shortness of breath; M54.9 Dorsalgia, unspecified; Z87.442 Personal history of urinary calculi; Z88.0 Allergy status to penicillin; Z88.1 Allergy status to other antibiotic agents; Z98.890 Other specified postprocedural states

== ENCOUNTER 2023-07-02 19:15 | Emergency (ER) | payer BC ==
[~2023-07-02] VITALS: Ht 172.7 cm; Wt 95.3 kg
[2023-07-02 19:35] LABS: BASO % 0.2 % (0.0-1.0); EOS % 0.6 % (1.0-4.0); HEMATOCRIT 44.8 % (42.0-52.0); LYMPH # 1.6 10*3/uL (1.3-4.4); LYMPH % 30.4 % (27.0-41.0); MEAN CELL VOLUME 86.8 fl (80.0-94.0); MEAN CORPUSCULAR HGB 27.9 pg (27.0-31.0); MEAN CORPUSCULAR HGB CONC 32.1 g/dl (33.0-37.0); MEAN PLATELET VOLUME 9.7 fl (9.6-12.3); MONO # 0.4 10*3/uL (0.1-1.0); NEUT # 3.3 10*3/uL (2.3-7.9); NEUT % 61.6 % (47.0-73.0); PLATELET COUNT AUTOMATED 272 10*3/uL (130-400); RED BLOOD COUNT 5.16 10*6/uL (4.50-5.90); WHITE BLOOD COUNT 5.3 10*3/uL (4.8-10.8)
[2023-07-02 19:46] LABS: ACT PARTIAL THROMBO TIME 29.7 SECONDS (20.0-32.1)
[2023-07-02 19:56] LABS: ALKALINE PHOSPHATASE 83 U/L (46-116); BUN 17 mg/dl (9-23); CHLORIDE 106 mmol/L (98-107); SGPT/ALT 30 U/L (5-49); TOTAL PROTEIN 7.3 gm/dL (6.0-8.0)
== END 2023-07-02 22:37 | disposition home or self-care (01) ==
LOC: ED 19:15
PROVIDERS: Emergency Medicine
DX: R07.89 Other chest pain (principal); Z88.0 Allergy status to penicillin; Z88.1 Allergy status to other antibiotic agents; Z79.899 Other long term (current) drug therapy

== ENCOUNTER 2023-07-10 18:24 | Emergency (ER) | payer BC ==
[~2023-07-10] VITALS: Ht 175.2 cm; Wt 94.3 kg
[2023-07-10] MEDS ORDERED: Lidocaine Hydrochloride 15 ML UDC PO STA (19:24)
[2023-07-10] MEDS ORDERED: Dicyclomine Hydrochloride 20 MG/10 ML OSYR PO STA (19:24)
[2023-07-10] MEDS ORDERED: MG-AL HYDROXIDE/SIMETICONE 30 ML UDC PO STA (19:24)
[2023-07-10] MEDS ORDERED: Pantoprazole Sodium 20 MG TAB PO ONE ×2 (20:00)
[2023-07-10] MEDS ORDERED: OMEPRAZOLE40 MG PO (20:04)
== END 2023-07-10 20:07 | disposition home or self-care (01) ==
LOC: ED 18:24
DX: K21.9 Gastro-esophageal reflux disease without esophagitis (principal); Z88.0 Allergy status to penicillin; Z88.1 Allergy status to other antibiotic agents; Z79.899 Other long term (current) drug therapy

== ENCOUNTER 2023-07-26 19:48 | Emergency (ER) | payer BC ==
[~2023-07-26] VITALS: Ht 172.7 cm; Wt 94.3 kg
[~2023-07-26 19:48] MED LIST changes: +OMEPRAZOLE40 MG PO
[2023-07-26] MEDS ORDERED: Doxycycline Hyclate 100 MG CAP PO ONE (20:05)
[2023-07-26] MEDS ORDERED: Bacitracin Zinc 14 GM TUBE T ONE (20:05)
[2023-07-26] MEDS ORDERED: Ondansetron Hydrochloride 4 MG TAB SL ONE (20:10)
[2023-07-26] MEDS ORDERED: Acetaminophen/Hydrocodone 5 MG/325 MG TABLET PO ONE (20:10)
== END 2023-07-26 20:38 | disposition home or self-care (01) ==
LOC: ED 19:48
DX: L03.112 Cellulitis of left axilla (principal); L03.111 Cellulitis of right axilla; Z87.442 Personal history of urinary calculi; Z88.0 Allergy status to penicillin; Z88.1 Allergy status to other antibiotic agents; Z98.890 Other specified postprocedural states

== ENCOUNTER 2023-08-01 21:56 | Emergency (ER) | payer BC ==
[2023-08-01 23:13] LABS: BASO % 0.5 % (0.0-1.0); EOS % 0.6 % (1.0-4.0); HEMATOCRIT 42.9 % (42.0-52.0); LYMPH # 1.9 10*3/uL (1.3-4.4); MEAN CELL VOLUME 87.6 fl (80.0-94.0); MEAN CORPUSCULAR HGB 28.2 pg (27.0-31.0); MEAN CORPUSCULAR HGB CONC 32.2 g/dl (33.0-37.0); MEAN PLATELET VOLUME 10.1 fl (9.6-12.3); MONO # 0.4 10*3/uL (0.1-1.0); MONO % 5.8 % (3.0-9.0); NEUT # 4.2 10*3/uL (2.3-7.9); NEUT % 63.9 % (47.0-73.0); PLATELET COUNT AUTOMATED 248 10*3/uL (130-400); RED CELL DISTRI WIDTH 13.2 % (0-14.5); WHITE BLOOD COUNT 6.6 10*3/uL (4.8-10.8)
[2023-08-01] MEDS ORDERED: Dicyclomine Hydrochloride 20 MG/10 ML OSYR PO ONE (23:35)
[2023-08-01] MEDS ORDERED: Lidocaine Hydrochloride 15 ML UDC PO ONE (23:35)
[2023-08-01] MEDS ORDERED: MG-AL HYDROXIDE/SIMETICONE 30 ML UDC PO ONE (23:35)
[2023-08-01 23:42] LABS: ALKALINE PHOSPHATASE 77 U/L (46-116); BUN 13 mg/dl (9-23); CHLORIDE 108 mmol/L (98-107); SGPT/ALT 22 U/L (5-49)
== END 2023-08-02 02:15 | disposition home or self-care (01) ==
LOC: ED 21:56
PROVIDERS: Emergency Medicine
DX: K21.9 Gastro-esophageal reflux disease without esophagitis (principal); R07.89 Other chest pain; Z88.0 Allergy status to penicillin; Z88.1 Allergy status to other antibiotic agents; Z79.899 Other long term (current) drug therapy; Z79.2 Long term (current) use of antibiotics

== ENCOUNTER 2023-08-20 19:19 | Emergency (ER) | payer BC ==
[~2023-08-20] VITALS: Ht 172.7 cm; Wt 97.1 kg
[2023-08-20] MEDS ORDERED: PROTONIX40 MG PO (19:43)
== END 2023-08-20 19:56 | disposition home or self-care (01) ==
LOC: ED 19:19
DX: H53.8 Other visual disturbances (principal); K21.9 Gastro-esophageal reflux disease without esophagitis; Z87.442 Personal history of urinary calculi; Z88.0 Allergy status to penicillin; Z88.1 Allergy status to other antibiotic agents

== ENCOUNTER 2023-09-04 23:59 | Emergency (ER) | payer BC ==
[~2023-09-04] VITALS: Ht 172.7 cm; Wt 95.3 kg
[2023-09-05] MEDS ORDERED: Ondansetron Hydrochloride 4 MG TAB SL ONE (00:15)
[2023-09-05] MEDS ORDERED: CLINDAMYCIN HCL 300 MG CAPSULE PO ONE (00:15)
[2023-09-05] MEDS ORDERED: Acetaminophen/Hydrocodone 5 MG/325 MG TABLET PO ONE (00:15)
[2023-09-05] MEDS ORDERED: CLINDAMYCIN HC300 MG PO (00:16)
== END 2023-09-05 00:27 | disposition home or self-care (01) ==
LOC: ED 23:59
DX: K02.9 Dental caries, unspecified (principal); Z88.0 Allergy status to penicillin; Z88.1 Allergy status to other antibiotic agents; Z79.899 Other long term (current) drug therapy

== ENCOUNTER 2023-09-19 19:05 | Emergency (ER) | payer BC ==
[~2023-09-19] VITALS: Ht 172.7 cm; Wt 97.1 kg
[2023-09-19] MEDS ORDERED: Meclizine Hydrochloride 25 MG TAB PO ONE (21:00)
[2023-09-19] MEDS ORDERED: SODIUM CHLORIDE 0.9% 1,000 ML IV ONE (21:00)
[2023-09-19] MEDS ORDERED: FAMOTIDINE 50 ML IV ONE (21:05)
[2023-09-19] MEDS ORDERED: Ondansetron Hydrochloride 4 MG/2 ML VIAL IV ONE (21:05)
[2023-09-19 21:10] LABS: BASO % 0.4 % (0.0-1.0); EOS # 0.1 10*3/uL (0.0-0.4); EOS % 1.4 % (1.0-4.0); HEMATOCRIT 40.9 % (42.0-52.0); LYMPH # 1.8 10*3/uL (1.3-4.4); LYMPH % 34.4 % (27.0-41.0); MEAN CORPUSCULAR HGB 29.2 pg (27.0-31.0); MEAN CORPUSCULAR HGB CONC 33.3 g/dl (33.0-37.0); MONO # 0.4 10*3/uL (0.1-1.0); MONO % 8.7 % (3.0-9.0); NEUT # 2.8 10*3/uL (2.3-7.9); NEUT % 54.9 % (47.0-73.0); PLATELET COUNT AUTOMATED 240 10*3/uL (130-400); RED BLOOD COUNT 4.65 10*6/uL (4.50-5.90); RED CELL DISTRI WIDTH 13.1 % (0-14.5); WHITE BLOOD COUNT 5.1 10*3/uL (4.8-10.8)
[2023-09-19 21:28] LABS: ALKALINE PHOSPHATASE 94 U/L (46-116); BUN 15 mg/dl (9-23); CHLORIDE 108 mmol/L (98-107); LIPASE 32 U/L (12-53); POTASSIUM 3.9 mmol/L (3.4-5.1); SGPT/ALT 26 U/L (5-49)
== END 2023-09-19 22:37 | disposition home or self-care (01) ==
LOC: ED 19:05
PROVIDERS: Emergency Medicine
DX: R07.89 Other chest pain (principal); R51.9 Headache, unspecified; K30 Functional dyspepsia; R42 Dizziness and giddiness; R11.0 Nausea; Z88.0 Allergy status to penicillin; Z88.1 Allergy status to other antibiotic agents; Z79.2 Long term (current) use of antibiotics; Z79.899 Other long term (current) drug therapy

== ENCOUNTER 2023-10-01 22:13 | Emergency (ER) | payer BC ==
[~2023-10-01] VITALS: Ht 170.1 cm; Wt 98.9 kg
[2023-10-01] MEDS ORDERED: SODIUM CHLORIDE 0.9% 1,000 ML IV ONE (22:35)
[2023-10-01 22:48] LABS: BASO % 0.3 % (0.0-1.0); EOS % 0.4 % (1.0-4.0); HEMATOCRIT 43.1 % (42.0-52.0); LYMPH # 1.9 10*3/uL (1.3-4.4); LYMPH % 23.5 % (27.0-41.0); MEAN CELL VOLUME 89.4 fl (80.0-94.0); MEAN CORPUSCULAR HGB 29.3 pg (27.0-31.0); MEAN CORPUSCULAR HGB CONC 32.7 g/dl (33.0-37.0); MEAN PLATELET VOLUME 10.1 fl (9.6-12.3); MONO # 0.5 10*3/uL (0.1-1.0); MONO % 6.8 % (3.0-9.0); NEUT # 5.5 10*3/uL (2.3-7.9); NEUT % 68.7 % (47.0-73.0); PLATELET COUNT AUTOMATED 285 10*3/uL (130-400); RED BLOOD COUNT 4.82 10*6/uL (4.50-5.90); RED CELL DISTRI WIDTH 12.7 % (0-14.5)
[2023-10-01 23:18] LABS: BUN 17 mg/dl (9-23); CHLORIDE 106 mmol/L (98-107); POTASSIUM 4.4 mmol/L (3.4-5.1)
== END 2023-10-02 00:50 | disposition home or self-care (01) ==
LOC: ED 22:13
PROVIDERS: Nurse Practitioner Family
DX: R55 Syncope and collapse (principal); E86.0 Dehydration; K21.9 Gastro-esophageal reflux disease without esophagitis; E78.00 Pure hypercholesterolemia, unspecified; E83.51 Hypocalcemia; Z88.0 Allergy status to penicillin; Z88.1 Allergy status to other antibiotic agents; Z87.442 Personal history of urinary calculi; Z98.890 Other specified postprocedural states

== ENCOUNTER 2023-10-03 20:34 | Emergency (ER) | payer BC ==
[~2023-10-03] VITALS: Ht 172.7 cm; Wt 98.0 kg
== END 2023-10-03 21:48 | disposition home or self-care (01) ==
LOC: ED 20:34
DX: R09.89 Other specified symptoms and signs involving the circulatory and respiratory systems (principal); R50.9 Fever, unspecified; T78.40XA Allergy, unspecified, initial encounter; Z88.1 Allergy status to other antibiotic agents; Z88.0 Allergy status to penicillin; Z79.899 Other long term (current) drug therapy; X58.XXXA Exposure to other specified factors, initial encounter

== ENCOUNTER 2023-10-15 19:00 | Emergency (ER) | payer BC ==
[~2023-10-15] VITALS: Ht 172.7 cm; Wt 95.3 kg
[2023-10-15] MEDS ORDERED: Sulfamethoxazole/Trimethopri 1 TAB TAB PO ONE (19:25)
[2023-10-15] MEDS ORDERED: diphenhydrAMINE hydrochloride 25 MG CAP PO ONE (19:25)
== END 2023-10-15 19:43 | disposition home or self-care (01) ==
LOC: ED 19:00
DX: L03.211 Cellulitis of face (principal); L02.01 Cutaneous abscess of face; Z88.0 Allergy status to penicillin; Z88.1 Allergy status to other antibiotic agents; Z79.899 Other long term (current) drug therapy

== ENCOUNTER 2023-11-14 23:46 | Emergency (ER) | payer BC ==
[~2023-11-14] VITALS: Ht 172.7 cm; Wt 96.6 kg
[2023-11-15] MEDS ORDERED: MG-AL HYDROXIDE/SIMETICONE 30 ML UDC PO STA (00:09)
[2023-11-15] MEDS ORDERED: Dicyclomine Hydrochloride 20 MG/10 ML OSYR PO STA (00:09)
[2023-11-15] MEDS ORDERED: Lidocaine Hydrochloride 15 ML UDC PO STA (00:09)
[2023-11-15] MEDS ORDERED: Pantoprazole Sodium 20 MG TAB PO ONE ×2 (00:10)
== END 2023-11-15 00:38 | disposition home or self-care (01) ==
LOC: ED 23:46
DX: K21.9 Gastro-esophageal reflux disease without esophagitis (principal); Z88.0 Allergy status to penicillin; Z88.1 Allergy status to other antibiotic agents; Z79.2 Long term (current) use of antibiotics; Z79.899 Other long term (current) drug therapy

== ENCOUNTER 2023-11-26 19:01 | Emergency (ER) | payer BC ==
[~2023-11-26] VITALS: Ht 172.7 cm; Wt 95.3 kg
[2023-11-26] MEDS ORDERED: Sulfamethoxazole/Trimethopri 1 TAB TAB PO ONE (19:45)
== END 2023-11-26 19:57 | disposition home or self-care (01) ==
LOC: ED 19:01
DX: L02.31 Cutaneous abscess of buttock (principal); K21.9 Gastro-esophageal reflux disease without esophagitis; Z87.442 Personal history of urinary calculi; Z88.0 Allergy status to penicillin; Z88.1 Allergy status to other antibiotic agents; Z98.890 Other specified postprocedural states

== ENCOUNTER 2023-12-04 19:06 | Emergency (ER) | payer BC ==
[~2023-12-04] VITALS: Ht 172.7 cm; Wt 95.3 kg
[2023-12-04] MEDS ORDERED: FLUORESCEIN SODIUM 1 MG STRIP OPH ONE (19:15)
[2023-12-04] MEDS ORDERED: Tetracaine Hydrochloride 0.5% 4 ML BOT OPH ONE (19:20)
[2023-12-04] MEDS ORDERED: Ciprofloxacin Hydrochloride 0.3% OPHTHLAMIC BOTTLE OPH ONE (19:50)
== END 2023-12-04 19:49 | disposition home or self-care (01) ==
LOC: ED 19:06
DX: S05.01XA Injury of conjunctiva and corneal abrasion without foreign body, right eye, initial encounter (principal); K21.9 Gastro-esophageal reflux disease without esophagitis; Z87.442 Personal history of urinary calculi; Z88.0 Allergy status to penicillin; Z88.1 Allergy status to other antibiotic agents; Z98.890 Other specified postprocedural states; X58.XXXA Exposure to other specified factors, initial encounter; Y93.89 Activity, other specified; Y92.009 Unspecified place in unspecified non-institutional (private) residence as the place of occurrence of the external cause; Y99.8 Other external cause status

== ENCOUNTER 2023-12-16 12:31 | Emergency (ER) | payer BC ==
[~2023-12-16] VITALS: Ht 172.7 cm; Wt 95.3 kg
[2023-12-16] MEDS ORDERED: Ketorolac Tromethamine 30 MG/ML VIAL IV ONE (13:40)
[2023-12-16] MEDS ORDERED: ACETAMINOPHEN 325 MG TAB PO ONE (13:40)
[2023-12-16] MEDS ORDERED: Metoclopramide Hydrochloride 10 MG/2 ML AMP IV ONE (13:40)
[2023-12-16] MEDS ORDERED: diphenhydrAMINE hydrochloride 50 MG/ML VIAL IV ONE (13:40)
[2023-12-16] MEDS ORDERED: SODIUM CHLORIDE 0.9% 500 ML IV ONE (13:40)
[2023-12-16 13:50] LABS: BASO % 0.3 % (0.0-1.0); EOS # 0.1 10*3/uL (0.0-0.4); EOS % 0.8 % (1.0-4.0); HEMATOCRIT 45.6 % (42.0-52.0); LYMPH # 2.5 10*3/uL (1.3-4.4); LYMPH % 34.3 % (27.0-41.0); MEAN CELL VOLUME 89.4 fl (80.0-94.0); MEAN CORPUSCULAR HGB 29.4 pg (27.0-31.0); MEAN CORPUSCULAR HGB CONC 32.9 g/dl (33.0-37.0); MEAN PLATELET VOLUME 9.9 fl (9.6-12.3); MONO # 0.5 10*3/uL (0.1-1.0); MONO % 6.2 % (3.0-9.0); NEUT # 4.3 10*3/uL (2.3-7.9); NEUT % 58.1 % (47.0-73.0); PLATELET COUNT AUTOMATED 251 10*3/uL (130-400); RED CELL DISTRI WIDTH 12.8 % (0-14.5); WHITE BLOOD COUNT 7.4 10*3/uL (4.8-10.8)
[2023-12-16 14:15] LABS: BUN 7 mg/dl (9-23); CHLORIDE 106 mmol/L (98-107); POTASSIUM 4.1 mmol/L (3.4-5.1)
== END 2023-12-16 15:21 | disposition home or self-care (01) ==
LOC: ED 12:31
PROVIDERS: Nurse Practitioner
DX: R51.9 Headache, unspecified (principal); R11.0 Nausea; R42 Dizziness and giddiness; K21.9 Gastro-esophageal reflux disease without esophagitis; Z87.442 Personal history of urinary calculi; Z88.0 Allergy status to penicillin; Z88.1 Allergy status to other antibiotic agents; Z98.890 Other specified postprocedural states

== ENCOUNTER 2023-12-23 16:37 | Emergency (ER) | payer BC ==
[~2023-12-23] VITALS: Ht 172.7 cm; Wt 94.3 kg
[2023-12-23] MEDS ORDERED: BENADRYL ALLERG25 M5 PO (17:27)
== END 2023-12-23 17:47 | disposition home or self-care (01) ==
LOC: ED 16:37
DX: L50.9 Urticaria, unspecified (principal); T49.2X5A Adverse effect of local astringents and local detergents, initial encounter; K21.9 Gastro-esophageal reflux disease without esophagitis; Z87.442 Personal history of urinary calculi; Z88.0 Allergy status to penicillin; Z88.1 Allergy status to other antibiotic agents; Z98.890 Other specified postprocedural states; Y92.009 Unspecified place in unspecified non-institutional (private) residence as the place of occurrence of the external cause

== ENCOUNTER 2024-01-16 19:27 | Emergency (ER) | payer BC ==
[~2024-01-16] VITALS: Ht 172.7 cm; Wt 94.3 kg
[~2024-01-16 19:27] MED LIST changes: +BENADRYL ALLERG25 M5 PO
[2024-01-16] MEDS ORDERED: FLUORESCEIN SODIUM 1 MG STRIP OPH ONE (20:55)
[2024-01-16] MEDS ORDERED: Tetracaine Hydrochloride 0.5% 4 ML BOT OPH ONE (20:55)
[2024-01-16] MEDS ORDERED: ERYTHROMYCIN 1 GM TUBE OPH ONE (22:00)
== END 2024-01-16 22:20 | disposition home or self-care (01) ==
LOC: ED 19:27
DX: H00.012 Hordeolum externum right lower eyelid (principal); K21.9 Gastro-esophageal reflux disease without esophagitis; E78.00 Pure hypercholesterolemia, unspecified; E83.51 Hypocalcemia; Z88.0 Allergy status to penicillin; Z88.1 Allergy status to other antibiotic agents; Z98.890 Other specified postprocedural states; Z87.442 Personal history of urinary calculi

== ENCOUNTER 2024-03-08 18:20 | Emergency (ER) | payer BC ==
[~2024-03-08] VITALS: Ht 172.7 cm; Wt 97.6 kg
[2024-03-08] MEDS ORDERED: FLUORESCEIN SODIUM 1 MG STRIP OPH ONE (18:35)
[2024-03-08] MEDS ORDERED: CIPROFLOXACIN H10 ML OPH (18:39)
== END 2024-03-08 19:06 | disposition home or self-care (01) ==
LOC: ED 18:20
DX: S05.01XA Injury of conjunctiva and corneal abrasion without foreign body, right eye, initial encounter (principal); K21.9 Gastro-esophageal reflux disease without esophagitis; Z87.442 Personal history of urinary calculi; Z88.0 Allergy status to penicillin; Z88.1 Allergy status to other antibiotic agents; Z98.890 Other specified postprocedural states; X58.XXXA Exposure to other specified factors, initial encounter; Y93.89 Activity, other specified; Y92.89 Other specified places as the place of occurrence of the external cause; Y99.8 Other external cause status

== ENCOUNTER 2024-04-12 03:15 | Emergency (ER) | payer BC ==
[~2024-04-12] VITALS: Ht 172.7 cm; Wt 97.1 kg
[~2024-04-12 03:15] MED LIST changes: +CIPROFLOXACIN H10 ML OPH
[2024-04-12] MEDS ORDERED: CLINDAMYCIN HCL 300 MG CAPSULE PO ONE (03:45)
== END 2024-04-12 04:02 | disposition home or self-care (01) ==
LOC: ED 03:15
DX: K06.1 Gingival enlargement (principal); K21.9 Gastro-esophageal reflux disease without esophagitis; Z88.0 Allergy status to penicillin; Z88.1 Allergy status to other antibiotic agents; Z98.890 Other specified postprocedural states

== ENCOUNTER 2024-05-04 17:58 | Emergency (ER) | payer BC ==
[~2024-05-04] VITALS: Ht 172.7 cm; Wt 94.8 kg
[2024-05-04] MEDS ORDERED: IBUPROFEN 800 MG TAB PO ONE (18:35)
[2024-05-04] MEDS ORDERED: Albuterol Sulf/Ipratropium 3 ML VIAL NEB ONE (18:35)
[2024-05-04] MEDS ORDERED: MEDROL DOSEPAK4 MG PO (20:34)
[2024-05-04] MEDS ORDERED: predniSONE 20 MG TAB PO ONE (20:35)
== END 2024-05-04 20:53 | disposition home or self-care (01) ==
LOC: ED 17:58
DX: J40 Bronchitis, not specified as acute or chronic (principal); Z20.822 Contact with and (suspected) exposure to COVID-19; K21.9 Gastro-esophageal reflux disease without esophagitis; Z87.442 Personal history of urinary calculi; Z88.0 Allergy status to penicillin; Z88.1 Allergy status to other antibiotic agents; Z98.890 Other specified postprocedural states

== ENCOUNTER 2024-07-30 15:21 | Emergency (ER) | payer BC ==
[~2024-07-30] VITALS: Ht 172.7 cm; Wt 92.7 kg
[2024-07-30] MEDS ORDERED: MG-AL HYDROXIDE/SIMETICONE 30 ML UDC PO STA (16:57)
[2024-07-30] MEDS ORDERED: Dicyclomine Hydrochloride 20 MG/10 ML OSYR PO STA (16:57)
[2024-07-30] MEDS ORDERED: Lidocaine Hydrochloride 15 ML UDC PO STA (16:57)
[2024-07-30 17:35] LABS: BASO % 0.3 % (0.0-1.0); EOS % 0.3 % (1.0-4.0); HEMATOCRIT 42.7 % (42.0-52.0); MEAN CELL VOLUME 86.4 fl (80.0-94.0); MEAN CORPUSCULAR HGB 28.7 pg (27.0-31.0); MEAN CORPUSCULAR HGB CONC 33.3 g/dl (33.0-37.0); MEAN PLATELET VOLUME 10.2 fl (9.6-12.3); MONO # 0.5 10*3/uL (0.1-1.0); NEUT # 4.6 10*3/uL (2.3-7.9); NEUT % 67.1 % (47.0-73.0); PLATELET COUNT AUTOMATED 290 10*3/uL (130-400); RED BLOOD COUNT 4.94 10*6/uL (4.50-5.90); RED CELL DISTRI WIDTH 12.6 % (0-14.5); WHITE BLOOD COUNT 6.8 10*3/uL (4.8-10.8)
[2024-07-30 17:56] LABS: BUN 15 mg/dl (9-23); CHLORIDE 102 mmol/L (98-107); LIPASE 29 U/L (12-53); POTASSIUM 3.6 mmol/L (3.4-5.1)
[2024-07-30] MEDS ORDERED: PROTONIX40 MG PO (18:03)
== END 2024-07-30 18:15 | disposition home or self-care (01) ==
LOC: ED 15:21
PROVIDERS: Internal Medicine
DX: K21.9 Gastro-esophageal reflux disease without esophagitis (principal); Z79.899 Other long term (current) drug therapy; Z88.0 Allergy status to penicillin; Z88.1 Allergy status to other antibiotic agents

== ENCOUNTER 2024-10-09 20:32 | Emergency (ER) | payer OTHER ==
[~2024-10-09] VITALS: Ht 172.7 cm; Wt 93.0 kg
[2024-10-09 21:31] LABS: BASO % 0.1 % (0.0-1.0); EOS % 0.4 % (1.0-4.0); HEMATOCRIT 42.9 % (42.0-52.0); MEAN CELL VOLUME 87.6 fl (80.0-94.0); MEAN CORPUSCULAR HGB 28.8 pg (27.0-31.0); MEAN CORPUSCULAR HGB CONC 32.9 g/dl (33.0-37.0); MEAN PLATELET VOLUME 9.6 fl (9.6-12.3); MONO # 0.5 10*3/uL (0.1-1.0); MONO % 5.8 % (3.0-9.0); NEUT # 5.6 10*3/uL (2.3-7.9); PLATELET COUNT AUTOMATED 282 10*3/uL (130-400); RED CELL DISTRI WIDTH 12.8 % (0-14.5); WHITE BLOOD COUNT 8.1 10*3/uL (4.8-10.8)
[2024-10-09 21:58] LABS: BUN 17 mg/dl (9-23); CHLORIDE 103 mmol/L (98-107)
[2024-10-09] MEDS ORDERED: methylPREDNISolone sod succ 125 MG VIAL IM ONE (23:10)
== END 2024-10-09 23:18 | disposition home or self-care (01) ==
LOC: ED 20:32
PROVIDERS: Nurse Practitioner Family
DX: R07.1 Chest pain on breathing (principal); R55 Syncope and collapse; R00.2 Palpitations; K21.9 Gastro-esophageal reflux disease without esophagitis; Z88.0 Allergy status to penicillin; Z88.1 Allergy status to other antibiotic agents; Z79.899 Other long term (current) drug therapy